=== PATIENT | male | born 1935 | race Caucasian/White ===

== ENCOUNTER → 2023-12-30 08:07 | Outpatient (REF) | payer MEDICARE, SELFPAY ==
[2023-12-30 09:09] LABS: % Basophils 0.7 % (0-2); % Immature Granulocytes 0.2 % (0-0.5); % Monocytes 8.2 % (1.7-9.3); % Neutrophils 62.9 % (42.2-75.2); Absolute Basophils 0.1 10^3/uL (0-0.2); Absolute Eosinophils 0.2 10^3/uL (0-0.7); Absolute Lymphocytes 2.3 10^3/uL (1.2-3.4); Absolute Monocytes 0.7 10^3/uL (0.1-0.6); Absolute Neutrophils 5.6 10^3/uL (1.4-6.5); Hematocrit 45.7 % (39.0-52.0); Hemoglobin 15.4 g/dL (13.0-18.0); Mean Corp Hgb Conc. 33.7 g/dL (33.0-37.0); Mean Corpuscular Hgb 31.8 pg (27.0-31.0); Mean Corpuscular Volume 94.4 fL (80.0-94.0); Nucleated Red Blood Cells % 0 % (-); Platelet Count 209 10^3/uL (130-400); Red Blood Cell Count 4.84 10^6/uL (4.70-6.10); Red Cell Dist. Width 12.3 % (11.5-14.5); White Blood Cell Count 8.9 10^3/uL (4.8-10.8)
[2023-12-30 09:10] LABS: Urine Albumin Negative (Neg - Trace); Urine Bilirubin Negative (Negative); Urine Character Clear (Clear); Urine Color Yellow; Urine Glucose Negative (Negative); Urine Ketone Negative (Negative); Urine Leukocyte Negative (Negative); Urine Nitrite Negative (Negative); Urine Occult Blood Negative (Negative); Urine Urobilinogen Negative (Neg - 1+)
[2023-12-30 11:20] LABS: Vitamin D, 25-OH*** 42.5 ng/mL (30-80)
[2023-12-30 11:30] LABS: ALT (SGPT) 17 U/L (0-50); AST (SGOT) 26 U/L (17-59); Albumin 4.1 g/dl (3.5-5.0); Alkaline Phosphatase 132 U/L (38-126); Blood Urea Nitrogen 14 mg/dl (9-20); Calcium 10.1 mg/dl (8.4-10.2); Carbon Dioxide 29 mmol/L (22-30); Chloride 103 mmol/L (98-107); Glucose 101 mg/dl (70-99); HDL Cholesterol 57 mg/dl; Iron 146 ug/dl (49-181); LDL Cholesterol, Calculated 79 mg/dl; Sodium 140 mmol/L (135-145); Total Bilirubin 0.4 mg/dl (0.2-1.3); Total Cholesterol 176 mg/dl (50-199); Total Protein 7.5 g/dl (6.3-8.2); Triglyceride 203 mg/dl (10-149); Very Low Density Lipoprotein 40 mg/dl (0-30); eGFR > 60.00
[2023-12-30 11:34] LABS: PSA, Total - Screen 8.43 ng/ml (0.0-4.0); TSH Reflex To Free T4 1.54 uIU/ml (0.47-4.68)
[2023-12-30 11:38] LABS: Ferritin 72.6 ng/ml (17.9-464.0)
[2023-12-30 11:39] LABS: Percent Saturation 57 % (20-50); Total Iron Binding Capacity 256 ug/dl (261-462)
[2023-12-30 11:53] LABS: Vitamin B12 851 pg/ml (239-931)
== END ==
LOC: REG 08:07
PROVIDERS: ATTENDING PHYSICIAN Physician Assistant
DX: Z00.00 Encounter for general adult medical examination without abnormal findings (principal); R53.82 Chronic fatigue, unspecified; D35.1 Benign neoplasm of parathyroid gland; I10 Essential (primary) hypertension; E21.0 Primary hyperparathyroidism; N40.0 Benign prostatic hyperplasia without lower urinary tract symptoms; Z12.5 Encounter for screening for malignant neoplasm of prostate; R97.20 Elevated prostate specific antigen [PSA]; R68.84 Jaw pain; Z78.9 Other specified health status; R79.89 Other specified abnormal findings of blood chemistry
CPT/HCPCS: 36415; 80053; 80061; 81003; 82306; 82607; 82728; 83540; 83550; 83970; 84443; 85025; G0103

== ENCOUNTER → 2024-01-24 07:09 | Outpatient (REF) | payer MEDICARE, SELFPAY | LOC: RAD 07:09 | PROVIDERS: ATTENDING PHYSICIAN Physician Assistant | DX: D35.1 Benign neoplasm of parathyroid gland (principal); R79.89 Other specified abnormal findings of blood chemistry | CPT/HCPCS: 76536 ==

== ENCOUNTER → 2024-10-02 10:37 | Outpatient (REF) | payer MEDICARE, SELFPAY | LOC: RAD 10:37 | PROVIDERS: ATTENDING PHYSICIAN Physician Assistant | DX: M54.50 Low back pain, unspecified (principal) | CPT/HCPCS: 72110 ==

== ENCOUNTER → 2024-10-20 11:40 | Outpatient (REF) | payer MEDICARE, SELFPAY | LOC: DHCBC/DCA 11:40 | PROVIDERS: ATTENDING PHYSICIAN Internal Medicine; FAMILY PHYSICIAN Physician Assistant | DX: R09.89 Other specified symptoms and signs involving the circulatory and respiratory systems (principal); I49.3 Ventricular premature depolarization; R94.31 Abnormal electrocardiogram [ECG] [EKG] | CPT/HCPCS: 78452; 93017; A9500; J2785 ==

== ENCOUNTER → 2024-10-31 13:39 | Outpatient (REF) | payer MEDICARE, SELFPAY | LOC: RCS 13:39 | PROVIDERS: ATTENDING PHYSICIAN Internal Medicine; FAMILY PHYSICIAN Physician Assistant | DX: R09.89 Other specified symptoms and signs involving the circulatory and respiratory systems (principal); I49.3 Ventricular premature depolarization; I34.0 Nonrheumatic mitral (valve) insufficiency; I35.1 Nonrheumatic aortic (valve) insufficiency | CPT/HCPCS: 93306 ==

== ENCOUNTER 2024-11-20 16:06 | Emergency (ER) | payer MEDICARE, SELFPAY ==
[2024-11-20 16:19] VITALS: BP 179/102
[2024-11-20 16:40] VITALS: BMI 22.3
--- NOTE | 2024-11-20 17:50 | ED.GENMED ---
History of Present Illness
General
Chief Complaint: Fall
Time Seen by Provider: 11/20/24 17:50
History of Present Illness
History of Present Illness:
TIME OF INITIAL ENCOUNTER: 6 PM
HPI: The patient slipped and fell on ice earlier. He primarily complains of the right shoulder. He had some pain radiating down to the right hand as well. Abrasions are noted over the face primarily at the nasal bone however the patient denies
any headache and no nasal pain.
EXAM:
GENERAL: Appears uncomfortable related the pain at the right shoulder
CERVICAL SPINE: No midline c-spine tenderness with excellent AROM
HEAD: No evidence of trauma/hematoma above the eyebrows however there is some soft tissue swelling along with skin tear over the nasal bone which is nontender
CHEST: No chest wall tenderness, normal heart sounds
LUNGS: Equal lung sounds, no respiratory distress
ABDOMEN: No abdominal tenderness, no peritoneal signs
EXTREMITIES: Markedly decreased active range of motion at the right shoulder due to pain, tenderness noted at the proximal humerus, no clavicular tenderness, abrasions are noted along with skin tears to the dorsal aspect of the right hand but there
is no tenderness to the metacarpals or phalanges of the right hand/fingers. Left upper extremity and lower extremities are unremarkable
NEURO: Excellent strength all extremities, appropriate mental status, normal speech/language
NUMBER AND COMPLEXITY OF PROBLEMS ADDRESSED AT THE ENCOUNTER
� Chronic conditions affecting care: High blood pressure, hyperlipidemia, anxiety, skin cancer
� Acute Exacerbation and/or Progression of Chronic Illness: This is an acute problem
� Differential Diagnosis includes: Proximal humerus fracture, contusion, abrasion, sprain, highly doubt intracranial hemorrhage as he has no neurologic signs or symptoms with GCS of 15 and NIHSS equals 0
AMOUNT AND/OR COMPLEXITY OF DATA TO BE REVIEWED AND ANALYZED
� I performed an independent evaluation of and my interpretation is:
EKG:
CT:
X-rays: Right shoulder x-ray shows a proximal humerus fracture
Laboratory Studies:
Other:
� Review of other/old records: I reviewed records, the patient had a stress test in October 2024 which was negative for ischemia
� Clinical information was obtained by an independent historian: None needed
� Prescriptions/Medications Considered but not given:
� Further testing considered but not performed: Considered CT imaging of the brain given the patient's advanced age and the fact that he thinks he is on 'a blood thinner'. However the trauma is below the level of the eyebrows
and appears more of a skin tear to the nose with no bony tenderness. There is no hematoma. He has no headache and no neurologic dysfunction.
RISK OF COMPLICATIONS AND/OR MORBIDITY OR MORTALITY OF PATIENT MANAGEMENT
� Social determinants of health affecting care: The patient's friend drove him here
� Discussion with other providers:
� Escalation of care including admission/observation vs risk of discharge considered: The patient has evidence of proximal humerus fracture�he appears uncomfortable, narcotic analgesia started. Was placed in sling
ANY OTHER UPDATES:
Past History
Past History
ED Past Medical History: Other (Seizure disorder)
ED Past Surgical History: Other (dental procedure)
Patient has exhibited threatening behavior?: No
PSI?: No
Social History
Tobacco: Non-smoker
Alcohol: None
Family History
Family History: Negative Diabetes, Hypertension or CAD
Phy Exam
Physical Exam
Physical Exam:
See HPI
Course
Orders/Labs/Results
Orders:
Orders
11/20/24 16:23
CR Shoulder, Trauma - Right Urgent
Comment:
Reason For Exam: fall, pain
11/20/24 18:24
Sling Right-Treatment ONCE
Oxycodone/Acetaminophen [Percocet 5/325] 1 tablet PO NOW STA
Vital Signs
Initial and Last Documented VS:
Initial Vital Signs
Temp Pulse Resp BP Pulse Ox
36.8 C 77 16 179/102 100
11/20/24 16:19 11/20/24 16:19 11/20/24 16:19 11/20/24 16:19 11/20/24 16:19
Last Documented Vital Signs
Temp Pulse Resp BP Pulse Ox
36.8 C 72 16 180/88 97
11/20/24 16:19 11/20/24 18:34 11/20/24 18:34 11/20/24 18:34 11/20/24 18:34
*Critical Care Note
Total Time (30-74mins, 75-104mins- exclusive of procedures): Not Applicable
ED Attending Note
-
Portions of this chart may have been created with voice recognition software.� Occasional wrong word or��sound alike� substitutions may have occurred due to the inherent limitations of voice recognition software.
Discharge Plan
Departure
Patient Disposition: Home (Routine Discharge)
Date of Disposition: 11/20/24
Time of Disposition: 18:25
Patient with high blood pressure during this ER visit?: Yes
Discharge Problem:
Fracture of proximal end of right humerus
Instructions: Preventing falls in adults, Skin Abrasions (DC), Shoulder or upper arm fracture, BLOOD PRESSURE
Prescriptions:
New
oxycodone-acetaminophen [Percocet] 5-325 mg tablet
1 tab PO Q6HPRN PRN (Reason: pain) Qty: 14 0RF
No Action
phenytoin sodium extended 100 MG capsule
100 mg PO BID
hydrochlorothiazide 12.5 mg tablet
12.5 mg PO DAILY Qty: 20 1RF
Referrals:
Manav Craig MD [Active] - Follow up in 2-3 days
UNKNOWN - PT DOES,NOT KNOW [Family Provider] -
Activity Restrictions/Additional Instructions:
You have a fracture of the upper part of the right humerus. This is commonly called a shoulder fracture. I am sending a prescription for Percocet to your pharmacy. Limit the use of this as it has high sedation and addiction potential. I have
given the contact information for local orthopedist, Dr. Craig, to follow-up with. If you take Percocet, I recommend that you take something like MiraLAX to help event constipation. Return here if worse or other concerns.
Interventions
Interventions:
*Risk Screen - Suicide Last Done: 11/20/24 16:19
*General Assessment Last Done: 11/20/24 16:19
*Neglect/Abuse Screening Last Done: 11/20/24 16:40
ED- Fall Risk Assessment Last Done: 11/20/24 16:48
*ED COVID-19 Vaccine History Last Done: 11/20/24 16:19
*Nursing Disposition Last Done: 11/20/24 18:55
ED-Musculoskeletal Assessment Last Done: 11/20/24 16:47
ED- Neurological Assessment Last Done: 11/20/24 16:47
ED-Skin Assessment Last Done: 11/20/24 16:47
Discharge Date and Time
Discharge Date/Time: 11/20/24 18:58
Print Language: WOLOF
[2024-11-20] MEDS: PERCOCET 5/325 1 TABLET PO (18:33)
[2024-11-20 18:34] VITALS: BP 180/88
== END 2024-11-20 18:58 | disposition home or self-care (01) ==
LOC: EMR 16:06
PROVIDERS: EMERGENCY PHYSICIAN Emergency Medicine
DX: S42.291A Other displaced fracture of upper end of right humerus, initial encounter for closed fracture (principal); S00.81XA Abrasion of other part of head, initial encounter; S60.511A Abrasion of right hand, initial encounter; W00.0XXA Fall on same level due to ice and snow, initial encounter
CPT/HCPCS: 99283; 73030

== ENCOUNTER 2024-12-05 10:25 | Inpatient (IN) | payer MEDICARE, SELFPAY ==
[2024-12-03 13:05] VITALS: BP 131/71
[2024-12-03 14:41] LABS: % Basophils 0.8 % (0-2); % Eosinophils 1.1 % (0-6); % Immature Granulocytes 0.2 % (0-0.5); % Monocytes 7.8 % (1.7-9.3); % Neutrophils 72.1 % (42.2-75.2); Absolute Basophils 0.1 10^3/uL (0-0.2); Absolute Eosinophils 0.1 10^3/uL (0-0.7); Absolute Lymphocytes 1.6 10^3/uL (1.2-3.4); Absolute Monocytes 0.7 10^3/uL (0.1-0.6); Absolute Neutrophils 6.6 10^3/uL (1.4-6.5); Hematocrit 38.4 % (39.0-52.0); Hemoglobin 13.1 g/dL (13.0-18.0); Mean Corp Hgb Conc. 34.1 g/dL (33.0-37.0); Mean Corpuscular Volume 90.8 fL (80.0-94.0); Mean Platelet Volume 9.6 fL (7.4-10.4); Nucleated Red Blood Cells % 0 % (-); Platelet Count 338 10^3/uL (130-400); Red Blood Cell Count 4.23 10^6/uL (4.70-6.10); Red Cell Dist. Width 12.9 % (11.5-14.5); White Blood Cell Count 9.1 10^3/uL (4.8-10.8)
--- NOTE | 2024-12-03 14:50 | ED.GENMED ---
History of Present Illness
<SUKHJINDER Gonzalez Jr. Last Filed: 12/05/24 13:09>
General
Chief Complaint: Musculo-Skeletal Complaint
Source: patient
Exam Limitations: none
Time Seen by Provider: 12/03/24 13:35
Nursing documentation reviewed up to this point in time: agreed with
History of Present Illness
History of Present Illness:
89-year-old male past medical history of hypertension hyperlipidemia, seizure disorder presenting to the emergency department today with concerns of ongoing discomfort and swelling to the right arm. He claims that he had a fall and broke his right
shoulder 12 days ago. He has had ongoing swelling to the arm ongoing pain without significant improvement which prompted him to come back to the ER. Denies any chest pain shortness of breath or fevers.
Past History
<Randy Coyne Jr., PA-C - Last Filed: 12/05/24 13:09>
Past History
ED Past Medical History: Other (Seizure disorder)
ED Past Surgical History: Other (dental procedure)
Patient has exhibited threatening behavior?: No
PSI?: No
Social History
Tobacco: Non-smoker
Alcohol: None
Family History
Family History: Negative Diabetes, Hypertension or CAD
Review of Systems
<Randy Coyne Jr., PA-C - Last Filed: 12/05/24 13:09>
Review of Systems
Allergies reviewed?: Yes
All Other Systems: ROS reviewed and negative except as documented in HPI and ROS
Phy Exam
<SUKHJINDER Gonzalez Jr. Last Filed: 12/05/24 13:09>
Physical Exam
Physical Exam:
GENERAL: Alert , in no apparent distress
EYE: pupils equal and reactive
NECK: Supple, no significant adenopathy.
ENT: o/p clr, mmm.
CARDIAC: Regular rate and rhythm .
LUNGS: Clear breath sounds bilaterally, no acute respiratory distress, no wheezes/rales/rhonchi
ABDOMEN: Soft, without focal tenderness, no r/g, no cvat
NEUROLOGICAL: Alert and oriented, no focal neuro deficits
SKIN: Warm and dry, skin intact.
MUSCULOSKELETAL: Ecchymosis throughout the right upper extremity from the shoulder down to the forearm. Good mat worker strength able to move the elbow well. Discomfort to the proximal humerus area. No tenderness throughout the shoulder girdle.
PSYCH: Normal and appropriate interaction.
Course
<Randy Coyne Jr., PA-C - Last Filed: 12/05/24 13:09>
Orders/Labs/Results
Orders:
Orders
12/03/24 14:07
EKG [Electrocardiogram (*1)] Urgent
Reason for Study: Fatigue / Weakness
EKG- Treatment ONCE
Venous Doppler Upr Ext Right [US Perip Venous UPPER Ext RT] Urgent
Comment:
Reason For Exam: right armswelling recent fx
12/03/24 14:33
BMP [Basic Metabolic Panel] Urgent
CBC/With Diff [Complete Blood Count/With Diff] Urgent
12/03/24 18:15
Enoxaparin Sodium [Lovenox] 60 mg SC NOW STA
12/03/24 19:28
Admit/Transfer Patient As Directed
Co-Sign Provider:
Level of Care: Observation services
Assign to:: Medical/Surgical
Physician / Group: Hospitalist
Diagnosis: DVT
Reason for Hospitalization: DVT
Expected length of stay greater than two midnights?: Yes
ELOS- Estimated Length of Stay in days: 2
I certify the patient meets the requirements for IP care: Yes
Code Status As Directed
Resuscitation Status: Do not resuscitate
Reached after discussion with pt or family/Healthcare POA: Yes
Decision communicated with: patient at bedside
Physician note:: He has capacity to make this choice
PRN Pain Medication Management As Directed
May give lesser potent ordered pain med per pt: Yes
preference::
Protocol:: Medication orders for pain may be administered in a
manner that supports deferring to patient preference
when the pt is:
- Requesting an ordered lesser potent pain medication.
Least to most potent pain medications are defined
as: acetaminophen < NSAID < tramadol < opioids
(morphine, oxycodone, hydromorphone).
- Requesting a lesser dose of the same medication IF
ORDERED.
- Requesting a less intrusive route of administration
if both routes are prescribed by the provider (PO <
IV).
12/03/24 19:29
DNR Bracelet Application ONCE
12/03/24 20:45
Acetaminophen [Tylenol] 500 mg PO DAILYPRN PRN
Bisacodyl [Dulcolax] 10 mg RECTAL [id number] PRN
Docusate W/Senna [Senokot-S] 1 tablet PO BIDPRN PRN
Phenytoin [Dilantin] 100 mg PO BID
Polyethylene Glycol Powder [Miralax] 17 grams PO DAILYPRN PRN
12/03/24 20:45
Activity As Directed
Activity Level: With Assistance
Vital Signs As Directed
Frequency: Per unit guidelines
12/03/24 21:00
Flush (0.9% Sodium Chloride) [Flush (Nss)] See Dose Instructions IV PER PROTOCOL
12/03/24 21:30
Pt Screening Request from Mary Routine
12/03/24 23:54
Ot Screening Request from Mary Routine
12/04/24 Breakfast
Regular
At Your Request: Full Participation
12/04/24 08:00
Enoxaparin Sodium [Lovenox] 50 mg SC Q12
Lisinopril [Zestril] 5 mg PO DAILY
12/04/24 11:56
Request for Occupational Therapy [NOTICE] Routine
12/04/24 13:00
Request for Physical Therapy [NOTICE] Routine
12/04/24 13:47
Ot Eval And Treat Routine
Pt Eval And Treat Routine
Activity Level: Out of Bed-Early Mobility
12/04/24 13:50
Lovenox teaching [Patient Education] As Directed
Type: Lovenox
12/04/24 13:59
Precautions As Directed
Type of Precautions: Seizure
12/05/24 09:39
ORTHOPEDIC CONSULT Routine
Consulting Provider: Jason Bates
Was physician already notified: Yes
12/06/24 06:00
Basic Metabolic Panel IN AM
Complete Blood Count/No Diff IN AM
Abnormal Lab Results
12/03/24
14:33
RBC 4.23 L 10^6/uL
(4.70-6.10)
Hct 38.4 L %
(39.0-52.0)
Absolute Neuts (auto) 6.6 H 10^3/uL
(1.4-6.5)
Absolute Monos (auto) 0.7 H 10^3/uL
(0.1-0.6)
Lymphocytes % 18.0 L %
(20.5-51.1)
12/03/24 14:33
12/03/24 14:33
Vital Signs
Initial and Last Documented VS:
Initial Vital Signs
Temp Pulse Resp BP Pulse Ox
97.6 F 81 20 131/71 100
12/03/24 13:05 12/03/24 13:05 12/03/24 13:05 12/03/24 13:05 12/03/24 13:05
Last Documented Vital Signs
Temp Pulse Resp BP Pulse Ox
98.1 F 80 18 139/77 99
12/05/24 08:34 12/05/24 08:34 12/05/24 08:34 12/05/24 08:34 12/05/24 08:34
<Dai Paul PA-C - Last Filed: 12/03/24 19:50>
Orders/Labs/Results
Orders:
Orders
12/03/24 14:07
EKG [Electrocardiogram (*1)] Urgent
Reason for Study: Fatigue / Weakness
EKG- Treatment ONCE
Venous Doppler Upr Ext Right [US Periph Venous UPPER Ext RT] Urgent
Comment:
Reason For Exam: right armswelling recent fx
12/03/24 14:33
BMP [Basic Metabolic Panel] Urgent
CBC/With Diff [Complete Blood Count/With Diff] Urgent
12/03/24 18:15
Enoxaparin Sodium [Lovenox] 60 mg SC NOW STA
12/03/24 19:28
Admit/Transfer Patient As Directed
Co-Sign Provider:
Level of Care: Observation services
Assign to:: Medical/Surgical
Physician / Group: Hospitalist
Diagnosis: DVT
Reason for Hospitalization: DVT
Expected length of stay greater than two midnights?: Yes
ELOS- Estimated Length of Stay in days: 2
I certify the patient meets the requirements for IP care: Yes
Code Status As Directed
Resuscitation Status: Do not resuscitate
Reached after discussion with pt or family/Healthcare POA: Yes
Decision communicated with: patient at bedside
Physician note:: He has capacity to make this choice
PRN Pain Medication Management As Directed
May give lesser potent ordered pain med per pt: Yes
preference::
Protocol:: Medication orders for pain may be administered in a
manner that supports deferring to patient preference
when the pt is:
- Requesting an ordered lesser potent pain medication.
Least to most potent pain medications are defined
as: acetaminophen < NSAID < tramadol < opioids
(morphine, oxycodone, hydromorphone).
- Requesting a lesser dose of the same medication IF
ORDERED.
- Requesting a less intrusive route of administration
if both routes are prescribed by the provider (PO <
IV).
12/03/24 19:29
DNR Bracelet Application ONCE
12/03/24 20:45
Acetaminophen [Tylenol] 500 mg PO DAILYPRN PRN
Bisacodyl [Dulcolax] 10 mg RECTAL [id number] PRN
Docusate W/Senna [Senokot-S] 1 tablet PO BIDPRN PRN
Phenytoin [Dilantin] 100 mg PO BID
Polyethylene Glycol Powder [Miralax] 17 grams PO DAILYPRN PRN
12/03/24 20:45
Activity As Directed
Activity Level: With Assistance
Vital Signs As Directed
Frequency: Per unit guidelines
12/03/24 21:00
Flush (0.9% Sodium Chloride) [Flush (Nss)] See Dose Instructions IV PER PROTOCOL
12/03/24 21:30
Pt Screening Request from Mary Routine
12/03/24 23:54
Ot Screening Request from Mayr Routine
12/04/24 Breakfast
Regular
At Your Request: Full Participation
12/04/24 08:00
Enoxaparin Sodium [Lovenox] 50 mg SC Q12
Lisinopril [Zestril] 5 mg PO DAILY
12/04/24 11:56
Request for Occupational Therapy [NOTICE] Routine
12/04/24 13:00
Request for Physical Therapy [NOTICE] Routine
12/04/24 13:47
Ot Eval And Treat Routine
Pt Eval And Treat Routine
Activity Level: Out of Bed-Early Mobility
12/04/24 13:50
Lovenox teaching [Patient Education] As Directed
Type: Lovenox
12/04/24 13:59
Precautions As Directed
Type of Precautions: Seizure
12/05/24 09:39
ORTHOPEDIC CONSULT Routine
Consulting Provider: Jason Bates
Was physician already notified: Yes
12/06/24 06:00
Basic Metabolic Panel IN AM
Complete Blood Count/No Diff IN AM
Abnormal Lab Results
12/03/24
14:33
RBC 4.23 L 10^6/uL
(4.70-6.10)
Hct 38.4 L %
(39.0-52.0)
Absolute Neuts (auto) 6.6 H 10^3/uL
(1.4-6.5)
Absolute Monos (auto) 0.7 H 10^3/uL
(0.1-0.6)
Lymphocytes % 18.0 L %
(20.5-51.1)
12/03/24 14:33
12/03/24 14:33
Vital Signs
Initial and Last Documented VS:
Initial Vital Signs
Temp Pulse Resp BP Pulse Ox
97.6 F 81 20 131/71 100
12/03/24 13:05 12/03/24 13:05 12/03/24 13:05 12/03/24 13:05 12/03/24 13:05
Last Documented Vital Signs
Temp Pulse Resp BP Pulse Ox
98.1 F 80 18 139/77 99
12/05/24 08:34 12/05/24 08:34 12/05/24 08:34 12/05/24 08:34 12/05/24 08:34
<Randy Coyne Jr., PA-C - Last Filed: 12/05/24 13:09>
MDM/Problems Addressed
MDM/Problems Addressed:
89-year-old male presenting to the emergency department today with concerns of ongoing discomfort and swelling to the right upper extremity. Had a break to his proximal humerus 12 days ago. Here patient has scattered ecchymosis throughout the
right upper extremity. Good distal pulses and cap refill. Good mat worker strength able to move the elbow well.
<Dai Paul PA-C - Last Filed: 12/03/24 19:50>
*Critical Care Note
Total Time (30-74mins, 75-104mins- exclusive of procedures): Not Applicable
<Dai Paul PA-C - Last Filed: 12/03/24 19:50>
Patient Management
Discussion with other providers: Hospitalist
Escalation/DeEscalation of care consider admission/obs:
Admit for PT/CM consult�possible acute rehab placed
<Dai Paul PA-C - Last Filed: 12/03/24 19:50>
Update Note
Update Note:
Update: Received patient in signout. Ultrasound of right upper extremity does show an extensive nonocclusive thrombus throughout right brachial vein. Discussed findings with patient and need for anticoagulation. Patient has suffered 2 falls at
home since he has been diagnosed with humerus fracture. He does live alone and is having some difficulties with ADLs with both himself and his friend are concerned about. Concern for frequent falls�especially with new blood thinner. Patient may
benefit from PT/CM consult and acute rehab placement as humerus fracture heals. Patient is agreeable to this plan. As far as anticoagulation for DVT�will give dose of Lovenox in emergency department given DOACs/phenytoin interaction. Patient
accepted to hospitalist service in stable condition for PT/CM and possible rehab placement tomorrow.
ED Attending Note
<Randy Coyne Jr., PA-C - Last Filed: 12/05/24 13:09>
-
Portions of this chart may have been created with voice recognition software.� Occasional wrong word or��sound alike� substitutions may have occurred due to the inherent limitations of voice recognition software.
Discharge Plan
Departure
Patient Disposition: Admit
Date of Disposition: 12/03/24
Time of Disposition: 18:07
Presentation/result/management discussed w/ accepting MD/DO: Hospitalist
Patient with high blood pressure during this ER visit?: No
Condition: Good
Covid-19: Not Applicable
Discharge Problem:
Acute deep vein thrombosis (DVT) of brachial vein of right upper extremity, Closed fracture of right proximal humerus
Interventions
Interventions:
*Risk Screen - Suicide Last Done: 12/03/24 18:17
*General Assessment Last Done: 12/03/24 13:08
*Neglect/Abuse Screening Last Done: 12/03/24 18:17
ED- Fall Risk Assessment Last Done: 12/03/24 20:44
*ED COVID-19 Vaccine History Last Done: 12/03/24 20:44
*Nursing Disposition Last Done: 12/03/24 20:44
ED-Musculoskeletal Assessment Last Done: 12/03/24 13:35
Discharge Date and Time
Discharge Date/Time: 12/03/24 20:44
[2024-12-03 14:56] LABS: Blood Urea Nitrogen 18 mg/dl (9-20); Calcium 9.7 mg/dl (8.4-10.2); Carbon Dioxide 23 mmol/L (22-30); Chloride 104 mmol/L (98-107); Glucose 88 mg/dl (70-99); Potassium 4.5 mmol/L (3.5-5.1); Sodium 135 mmol/L (135-145); eGFR > 60.00
[2024-12-03 16:19] VITALS: BP 153/81
[2024-12-03 18:15] VITALS: BMI 19.6
[2024-12-03] MEDS: LOVENOX 60 MG SC (18:43)
[2024-12-03 18:46] VITALS: BP 148/72
--- NOTE | 2024-12-03 19:16 | HPS.HSE ---
Family Physician
-
Family Physician: NOT KNOW UNKNOWN - PT DOES
Chief Complaint
-
arm Swelling
History of Present Illness
89-year-old man with past medical history of:
hypertension
hyperlipidemia,
seizure disorder
Comes in with concerns of ongoing discomfort and swelling to the right arm. He had a fall and broke his right shoulder 12 days ago. He has had ongoing swelling to the arm ongoing pain without significant improvement which prompted him to come back
to the ER. Denies any chest pain shortness of breath or fevers. The US in the ED showed: Extensive nonocclusive thrombus throughout the right brachial vein. He cannot take oral anticoagulants. He was started on lovenox and he needs home care to
be arranged before he can go home.
Medical History
Past Medical History
Past Medical History: Reports Other
Additional Past Medical History:
Bradycardia
Benign prostatic hyperplasia without lower urinary tract symptoms
Essential (primary) hypertension
Hypercalcemia
Liver nodule
Primary hyperparathyroidism
Seizure
Past Surgical History: Reports None
Social History
Tobacco: Non-smoker
Alcohol: None
Drug: None
Personal:
Family History
Family History: Not pertinent
Allergies / Home Medications
Allergies reflects when Allergies were last updated in [facility].
Home Medications with original date entered in [facility]
Allergy/Medication List:
Allergies
Allergy/AdvReac Type Severity Reaction Status Date / Time
No Known Allergies Allergy Verified 12/03/24 13:08
Home Medications
phenytoin sodium extended 100 mg capsule 100 mg PO BID 08/17/12
acetaminophen 500 mg tablet 500 mg PO DAILYPRN PRN mild pain 12/03/24
lisinopril 5 mg tablet 5 mg PO DAILY 12/03/24
Review of Systems
-
History Source: Patient
A 12 point ROS was completed and negative except as noted: Yes
Physical Exam
Vital Signs
Vital Signs
Temp Pulse Resp BP Pulse Ox
97.6 F 70 16 148/72 98
12/03/24 13:05 12/03/24 18:46 12/03/24 18:46 12/03/24 18:46 12/03/24 18:46
Physical Exam
General: Well Developed, Well Nourished, No Apparent Distress, Comfortable and Conversant
HEENT: NormoCephalic and Moist mucous membranes
Respiratory: Clear
Cardiac: S1/S2 and Regular Rhythm
GI: Soft
Musculoskeletal: No Clubbing, No Cyanosis and No Edema
Skin: Warm and Dry; No Rash or Jaundice
Neuro: Awake, Alert, Oriented and AO x 3
Psych: Calm
Laboratory Results
-
12/03/24 14:33
12/03/24 14:33
Data Reviewed
-
Lab Data: Labs Reviewed by me
Impression/Plan
-
IMPRESSION:
89 man with broken arm, and now a clot in the brachial vein.
PLAN:
1. DVT.
Lovenox started
Arrange home care for this
Discharge once care can be arranged
Code: DNR
Lovenox for DVTp
[2024-12-03 20:52] VITALS: BP 120/89; BMI 19.8
[2024-12-03] MEDS: DILANTIN 100 MG PO (21:30)
[2024-12-03] MEDS: TYLENOL 500 MG PO (22:48)
[2024-12-03 23:50] VITALS: BP 137/68
[2024-12-04 07:30] VITALS: BP 154/81
[2024-12-04] MEDS: LOVENOX 50 MG SC ×2 (08:07→19:16)
[2024-12-04] MEDS: DILANTIN 100 MG PO ×2 (08:07→19:15)
[2024-12-04] MEDS: ZESTRIL 5 MG PO (08:07)
--- NOTE | 2024-12-04 09:57 | VNURNOTE ---
Chart reviewed.� Patient is current with [facility] nursing.� Will continue to follow hospital course and DC plans.
--- NOTE | 2024-12-04 13:59 | W.PN.HOSP.TC ---
Today's Communication/Plan
-
PT/OT
rehab
Assessment / Plan
Assessment / Plan
89yo M with PMHx of seizure d/o, HTN came with worsening RUE swelling after he fell nd fractured his humerus on 11/20/24. Found RUE DVT in brachial vein. Due to Phenitoin - cannot start on DOAC, so lovenox initiated. Outpatient follow up with US RUE
in 3 mo to eval if Lovenox cqn be stopped. Ortho contacted to see if he needs inpatient follow up. PT/OT for rehab as patient unlikely can manage Lovenox injections himself at home.
A/P:
#RUE acute DVT
2/ recent fracture
Lovenox
#R humeral Fx
in sling
Ortho to reeval if inpatient mgmt needed. Had appt scheduled with Josiane on 12/05/24
#Seizure d/o
cont AED
seizure precautions
DVT ppx - Lovenox
DNR/DNI
I have spent at least 38min reviewing chart, test results, communication with consultants and direct patient care
Anticipated Discharge: Within 24 hours
Subjective/Interval History
-
Date of Service: December 04, 2024
Objective Data
-
Vital Signs:
Vital Signs
Temp Pulse Resp BP Pulse Ox
98.3 F 76 16 154/81 96
12/04/24 07:30 12/04/24 08:07 12/04/24 07:30 12/04/24 08:07 12/04/24 07:30
I&O
12/03/24 12/04/24 12/05/24
06:59 06:59 06:59
Intake Total 0 / 0
Balance 0 / 0
Review of Systems
-
History Source: Patient
All other systems: Reviewed and negative
Physical Exam
-
General: Well Nourished and No Apparent Distress
HEENT: Normocephalic
Respiratory: Clear to Auscultation
Cardiac: Regular Rhythm
GI: Soft, Nontender and Nondistended
Musculoskeletal: Other (RUE in sling with bruise)
Neuro: Awake, Alert, Oriented and AO x 3
Psych: Calm
[2024-12-04 15:20] VITALS: BP 118/71
--- NOTE | 2024-12-04 16:08 | CM ---
Alert awake oriented patient who lives alone in an [address] with an elevator. He said he is independent in all activities of daily living.he fracture his right arm and is in a sling. Requested PT OT order from . Tonie letter given explained
signed on chart.Pt is agreeable to rehab at al. Spoke with Alexia le . Pt is a [facility] waiver candidate.Received at call from friend Ramona who believes he needs rehab. He said his friend Alberto Tania [phone] is supportive.
[facility] . No SNF hx.
Pharmacy [facility]
PCP Cherelle Ruiz FEEDER/FOLDER
PLAN Needs PT /OT /Medicare waiver SNF
[2024-12-04 23:39] VITALS: BP 143/74
[2024-12-05] MEDS: ZESTRIL 5 MG PO (08:26)
[2024-12-05] MEDS: DILANTIN 100 MG PO ×2 (08:26→20:45)
[2024-12-05] MEDS: LOVENOX 50 MG SC ×2 (08:32→20:45)
[2024-12-05 08:34] VITALS: BP 139/77
[2024-12-05 09:31] VITALS: BP 119/68; PULSE 111
[2024-12-05 09:33] VITALS: BP 119/68; BP 128/79; PULSE 111; O2SAT 97
--- NOTE | 2024-12-05 09:34 | W.PN.HOSP.TC ---
Today's Communication/Plan
-
see A/P
Assessment / Plan
Assessment / Plan
89 yo M with PMH of seizure d/o, HTN came with worsening RUE swelling after he fell and fractured his humerus on 11/20/24. Found RUE DVT in brachial vein. Due to Phenytoin - cannot start on DOAC, so Lovenox initiated. Outpatient follow up with US RUE
in 3 mo to eval if Lovenox can be stopped. Ortho contacted to see if he needs inpatient follow up. PT/OT for rehab as patient unlikely can manage Lovenox injections himself at home.
A/P:
# RUE acute DVT in brachial vein 2/ recent fracture
Lovenox SQ
PT OT eval
CM for SNF
# R humeral Fx
Cont sling
Ortho to reeval. Pt has appt scheduled with Josiane on 12/05/24
# Seizure d/o
cont AED
seizure precautions
DVT ppx - Lovenox
DNR/DNI
Anticipated Discharge: 24 - 48 hours
Subjective/Interval History
-
Date of Service: December 05, 2024
Objective Data
-
Vital Signs:
Vital Signs
Temp Pulse Resp BP Pulse Ox
36.7 C 80 18 139/77 99
12/05/24 08:34 12/05/24 08:34 12/05/24 08:34 12/05/24 08:34 12/05/24 08:34
I&O
12/04/24 12/05/24 12/06/24
06:59 06:59 06:59
Intake Total 0 / 0 720 / 720
Balance 0 / 0 720 / 720
Review of Systems
-
All other systems: Reviewed and negative
Physical Exam
-
General: Well Developed, Well Nourished, No Apparent Distress, Comfortable and Conversant
HEENT: Normocephalic
Respiratory: Clear to Auscultation and Non Labored Respirations; Negative Accessory Resp Muscle Use
Cardiac: Regular Rhythm
GI: Soft, Nontender and Nondistended
Musculoskeletal: Other (RUE in sling with bruise)
Neuro: Awake, Alert, Oriented and AO x 3
Psych: Calm and Intact Judgement/Insight
Data Reviewed
-
Labs: Labs Reviewed by me
[2024-12-05 11:44] VITALS: BMI 19.7
[2024-12-05 15:52] VITALS: BP 150/78
--- NOTE | 2024-12-05 20:16 | CON.ORTHO ---
Consultation - Orthopedics
History
HPI: 89-year-old male presented to the emergency department with complaints of right arm pain and swelling. He had previously diagnosed proximal humerus fracture but was found in the emergency department to have right upper extremity DVT. He was
admitted to the hospitalist service. Orthopedics was consulted for evaluation of his right proximal humerus fracture. Patient reports to me that almost 2 weeks ago he sustained a mechanical fall onto his right arm. He was subsequently seen
emergency department discharged home. He reports that he had an appointment actually today on an outpatient basis although he is not sure with whom this appointment was made. He reports persistent pain right shoulder with increasing swelling as
well as bruising throughout the right arm. He has been wearing a sling for comfort.
Allergies / Home Medications
Past medical history: Hypertension, hyperlipidemia, seizure disorder, bradycardia
Past surgical history: None documented
Family history: Not pertinent
Social history: Non-smoker,
Allergy/AdvReac Type Severity Reaction Status Date / Time
No Known Allergies Allergy Verified 12/03/24 13:08
�Medication �Instructions �Recorded
phenytoin sodium extended 100 mg 100 mg PO BID Seizures 08/17/12
capsule
acetaminophen 500 mg tablet 500 mg PO DAILYPRN PRN mild pain 12/03/24
lisinopril 5 mg tablet 5 mg PO DAILY Blood Pressure 12/03/24
Vital Signs / Lab Results
Temp Pulse Resp BP Pulse Ox
98 F 74 18 150/78 98
12/05/24 15:52 12/05/24 15:52 12/05/24 15:52 12/05/24 15:52 12/05/24 15:52
12/03/24 14:33
12/03/24 14:33
10 point review systems reviewed and negative unless otherwise stated
General: Pleasant, no acute distress at rest
Right upper extremity musculoskeletal
Skin intact, no erythema, there is extensive ecchymotic staining noted throughout the arm and forearm, moderate swelling
There is moderate tenderness palpation over proximal humerus
Nontender to palpation over elbow wrist and fingers
Motor and sensation grossly intact distally
Diagnostic studies
X-rays right shoulder reviewed that show a impacted proximal humerus fracture involvement of surgical neck and greater tuberosity with mild displacement
Assessment / Plan
89-year-old male right proximal humerus fracture right upper extremity DVT. Would not recommend any aggressive surgical intervention for right proximal humerus fracture. Would recommend maintaining sling for the time being. Okay for active elbow
wrist and finger range of motion. Avoid active range of motion right shoulder. Okay for passive range of motion right shoulder including pendulums as pain allows. I would recommend outpatient follow-up with myself for his previously scheduled
provider in the next 1 to 2 weeks to initiate outpatient physical therapy for motion and discontinue sling. This was explained in detail to the patient. Medical management for DVT per primary team. Please reach out any questions or concerns
[2024-12-05] MEDS: TYLENOL 500 MG PO (20:56)
[2024-12-05 23:26] VITALS: BP 136/75
[2024-12-06 06:00] VITALS: BMI 19.6
[2024-12-06 06:57] LABS: Hematocrit 36.1 % (39.0-52.0); Hemoglobin 11.9 g/dL (13.0-18.0); Mean Corpuscular Hgb 30.7 pg (27.0-31.0); Mean Platelet Volume 9.6 fL (7.4-10.4); Platelet Count 342 10^3/uL (130-400); Red Blood Cell Count 3.88 10^6/uL (4.70-6.10); Red Cell Dist. Width 13.3 % (11.5-14.5); White Blood Cell Count 6.2 10^3/uL (4.8-10.8)
[2024-12-06 07:19] LABS: Blood Urea Nitrogen 20 mg/dl (9-20); Calcium 9.5 mg/dl (8.4-10.2); Carbon Dioxide 25 mmol/L (22-30); Chloride 102 mmol/L (98-107); Estimated Creatinine Clearance 37 ml/min; Glucose 90 mg/dl (70-99); Potassium 4.6 mmol/L (3.5-5.1); Sodium 137 mmol/L (135-145); eGFR > 60.00
[2024-12-06 09:09] VITALS: BP 152/76
[2024-12-06] MEDS: ZESTRIL 5 MG PO (09:26)
[2024-12-06] MEDS: DILANTIN 100 MG PO ×2 (09:26→20:38)
[2024-12-06] MEDS: LOVENOX 50 MG SC ×2 (09:27→20:39)
--- NOTE | 2024-12-06 12:00 | W.PN.HOSP.TC ---
Today's Communication/Plan
-
CM for rehab
Assessment / Plan
Assessment / Plan
89 yo M with PMH of seizure d/o, HTN came with worsening RUE swelling after he fell and fractured his humerus on 11/20/24. Found RUE DVT in brachial vein. Due to Phenytoin - cannot start on DOAC, so Lovenox initiated. Outpatient follow up with US RUE
in 3 mo to eval if Lovenox can be stopped. Ortho contacted to see if he needs inpatient follow up. PT/OT for rehab as patient unlikely can manage Lovenox injections himself at home.
A/P:
# RUE acute DVT in brachial vein 2/2 recent fracture
Lovenox SQ
PT OT eval
CM for SNF
# R humeral Fx
Cont sling
Ortho: outpatient follow-up with Dr. Bates in the next 1 to 2 weeks to initiate outpatient physical therapy for motion and discontinue sling
# Seizure d/o
cont AED
seizure precautions
DVT ppx - Lovenox
DNR/DNI
Anticipated Discharge: Within 24 hours
Subjective/Interval History
-
Date of Service: December 06, 2024
Objective Data
-
Labs:
Laboratory Results
12/06/24
05:40
WBC 6.2
Hgb 11.9 L
Hct 36.1 L
Plt Count 342
Sodium 137
Potassium 4.6
Chloride 102
Carbon Dioxide 25
BUN 20
Creatinine 1.0
Glucose 90
Calcium 9.5
Vital Signs:
Vital Signs
Temp Pulse Resp BP Pulse Ox
97.9 F 72 18 152/76 96
12/06/24 09:09 12/06/24 09:26 12/06/24 09:09 12/06/24 09:26 12/06/24 09:09
I&O
12/05/24 12/06/24 12/07/24
06:59 06:59 06:59
Intake Total 720 / 720 600 / 600
Balance 720 / 720 600 / 600
Physical Exam
-
General: No Apparent Distress
HEENT: Normocephalic
Respiratory: Clear to Auscultation
GI: Soft, Nontender and Nondistended
Skin: Warm
Neuro: Awake, Alert, Oriented and AO x 3
Psych: Calm
[2024-12-06 14:46] VITALS: BP 116/86; PULSE 82; O2SAT 97
[2024-12-06 16:05] VITALS: BP 116/76
[2024-12-06] MEDS: TYLENOL 500 MG PO (20:38)
[2024-12-06 23:28] VITALS: BP 124/68
[2024-12-07] MEDS: TYLENOL 500 MG PO (03:32)
[2024-12-07 04:39] VITALS: BMI 19.7
[2024-12-07 07:14] VITALS: BP 136/73
[2024-12-07] MEDS: LOVENOX 50 MG SC (09:45)
[2024-12-07] MEDS: ZESTRIL 10 MG PO (09:46)
[2024-12-07] MEDS: DILANTIN 100 MG PO (09:46)
--- NOTE | 2024-12-07 10:35 | W.PN.HOSP.TC ---
Today's Communication/Plan
-
dc
Assessment / Plan
Assessment / Plan
89 yo M with PMH of seizure d/o, HTN came with worsening RUE swelling after he fell and fractured his humerus on 11/20/24. Found RUE DVT in brachial vein. Due to Phenytoin - cannot start on DOAC, so Lovenox initiated. Outpatient follow up with US RUE
in 3 mo to eval if Lovenox can be stopped. Ortho contacted to see if he needs inpatient follow up. PT/OT for rehab as patient unlikely can manage Lovenox injections himself at home. Medically stabel for d/c. Recommeded to repeat US RUE in 3 mo and
if DVT resolved -consider to stop Lovenox.
A/P:
# RUE acute DVT in brachial vein 2/2 recent fracture
Lovenox SQ
PT OT eval
CM for SNF
# R humeral Fx
Cont sling
Ortho: outpatient follow-up with Dr. Bates in the next 1 to 2 weeks to initiate outpatient physical therapy for motion and discontinue sling
# Seizure d/o
cont AED
seizure precautions
DVT ppx - Lovenox
DNR/DNI
I have spent at least 36min reviewing chart, test results, communication with consultants and direct patient care
Anticipated Discharge: Today
Subjective/Interval History
-
Date of Service: December 07, 2024
Objective Data
-
Vital Signs:
Vital Signs
Temp Pulse Resp BP Pulse Ox
98 F 74 22 136/73 97
12/07/24 07:14 12/07/24 07:14 12/07/24 07:14 12/07/24 07:14 12/07/24 07:14
I&O
12/06/24 12/07/24 12/08/24
06:59 06:59 06:59
Intake Total 600 / 600
Balance 600 / 600
Review of Systems
-
History Source: Patient
All other systems: Reviewed and negative
Physical Exam
-
General: No Apparent Distress
HEENT: Normocephalic
Musculoskeletal: Other (Bruise on the upper R arm)
Neuro: Awake, Alert, Oriented and AO x 3
Psych: Calm
--- NOTE | 2024-12-07 10:37 | CM ---
Addendum entered by Pia Lutz RN 12/07/24 17:45:
Pt paid for [facility] van transport .
Original Note:
PT OT indicated SNF.
[facility].
Reviewed SNF with pt that qualify for waiver.
Yahaira from [facility] accepted him today for SNF.
Pt said she notified his dgt Herlinda .
Pt is checking with friend who could transport him today.
[facility]
report [phone]
fax [phone]
PLAN: To [facility]
--- NOTE | 2024-12-07 10:38 | W.DCSUMMARY ---
Discharge Summary
Discharge Data
Date of Admission: 12/05/24
Date of Discharge: 12/07/24
-
Pending Results: No
Hospital Course
89 yo M with PMH of seizure d/o, HTN came with worsening RUE swelling after he fell and fractured his humerus on 11/20/24. Found RUE DVT in brachial vein. Due to Phenytoin - cannot start on DOAC, so Lovenox initiated. Outpatient follow up with US RUE
in 3 mo to eval if Lovenox can be stopped. Ortho contacted to see if he needs inpatient follow up. PT/OT for rehab as patient unlikely can manage Lovenox injections himself at home. Medically stable for d/c. Recommended to repeat US RUE in 3 mo and
if DVT resolved -consider to stop Lovenox.
I have spent at least 36min reviewing chart, test results, communication with consultants and direct patient care
Patient was managed for:
#RUE acute DVT in brachial vein 2/2 recent fracture
#R humeral Fx
#Seizure d/o
#essential HTN
Discharge Plan
-
Patient Disposition: Acute Rehab Facility
Discharge Diagnosis/Procedures: Acute DVT
Diet: Regular
Referrals:
Jason Bates MD [Active] - in two to three weeks
UNKNOWN - PT DOES,NOT KNOW [Family Provider] -
Additional Discharge Medication Instructions: Continue Lovenox for at least 3 month, evaluate with ultrasound if clot still persistent at that time. If resolved -consider stopping lovenox
Prescriptions:
New
enoxaparin 60 mg/0.6 mL Syringe
50 mg SC Q12 Qty: 60 0RF
Continued
phenytoin sodium extended 100 MG capsule
100 mg PO BID
acetaminophen 500 mg Tablet
500 mg PO DAILYPRN PRN (Reason: mild pain)
lisinopril 5 mg Tablet
5 mg PO DAILY
Discharge Orders:
Discharge Patient (As Directed); Ordered 12/07/24
Ordered By: Thony Whittaker
Discharge Date and Time
Print Language: PERSIAN
== END 2024-12-07 15:11 | DRG 301 ==
LOC: 4 EAST ACU 10:25
PROVIDERS: Internal Medicine; Physician Assistant; ADMITTING PHYSICIAN Internal Medicine; ATTENDING PHYSICIAN Internal Medicine; CONSULT PHYSICIAN Orthopaedic Surgery; EMERGENCY PHYSICIAN Emergency Medicine
DX: I82.621 Acute embolism and thrombosis of deep veins of right upper extremity (principal); I10 Essential (primary) hypertension; Z66 Do not resuscitate; W19.XXXA Unspecified fall, initial encounter; S42.201D Unspecified fracture of upper end of right humerus, subsequent encounter for fracture with routine healing; G40.909 Epilepsy, unspecified, not intractable, without status epilepticus
CPT/HCPCS: 80048; 85025; 85027; 93005; 93971; 96372; 97116; 97162; 97166; 99285

== ENCOUNTER → 2025-02-01 16:50 | Outpatient (REF) | payer MEDICARE, SELFPAY | LOC: RAD 16:50 | PROVIDERS: ATTENDING PHYSICIAN Physician Assistant | DX: R07.89 Other chest pain (principal) | CPT/HCPCS: 71101 ==